=== PATIENT | male | born 1990 | race African-American/Black ===

== ENCOUNTER 2017-05-25 06:16 | Emergency (ER) | payer OTHER ==
[~2017-05-25] VITALS: Ht 167.6 cm; Wt 64.9 kg
[2017-05-25 07:30] VITALS: BP 118/79
== END 2017-05-25 08:45 ==
LOC: EME 06:16 → EDBD 06:16 → EME 08:45
PROC: 0RSTXZZ Reposition Left Carpometacarpal Joint, External Approach (ICD-10-PCS; principal; 2017-05-25)
DX: S63.105A Unspecified dislocation of left thumb, initial encounter (principal); W23.0XXA Caught, crushed, jammed, or pinched between moving objects, initial encounter; Y92.149 Unspecified place in prison as the place of occurrence of the external cause; Z87.891 Personal history of nicotine dependence
CPT/HCPCS: 73130; 99281; 99285; S0020